=== PATIENT | male | born 1975 | race African-American/Black ===

== ENCOUNTER → 2021-11-27 | Outpatient (CLI) | payer BC ==
--- NOTE | 2021-11-28 09:49 | KCIC ---
MR LUMBAR SPINE WO [id number] Date: 11/27/2021 3:30 PM Indication: LUMBAGO. Chronic LBP. BLE pain and numbness. NKI. Comparison: CT abdomen and pelvis 11/10/2021. Technique: Multi-planar multi-weighted magnetic resonance imaging of the lumbar spine was performed w ithout intravenous contrast using the standard lumbar spine protocol. FINDINGS: The lumbar spine is normally aligned. No acute fracture. Moderate multilevel degenerative disc desicc ation and disc height loss. Nonspecific T1 hypointense marrow signal. Degenerative endplate edema at T11-12, L2-3, and L4-5. The conus terminates at a normal level. No abnormal signal is seen within the visualized distal spina l cord. No clumping of intrathecal nerve roots. No soft tissue abnormality in the visualized abdomen or pelvis. T12-L1: No disc bulge. No facet arthropathy. No significant spinal stenosis or neural foraminal narro wing. L1-L2: No disc bulge. No facet arthropathy. No significant spinal stenosis or neural foraminal narrow ing. L2-L3: Disc bulge. Mild facet arthropathy. Mild spinal stenosis and lateral recess narrowing. Moderat e bilateral neural foraminal narrowing. L3-L4: Disc bulge. Mild facet arthropathy. Mild spinal stenosis. Mild bilateral neural foraminal narr owing. L4-L5: Disc bulge with annular tear and central/right paracentral inferiorly migrating extrusion whic h extends 14 mm below the disc space. Moderate narrowing of the right lateral recess with displacemen t of the descending right L5 nerve root. Mild spinal stenosis. Moderate bilateral neural foraminal na rrowing. Mild facet arthropathy. L5-S1: Disc bulge. Mild facet arthropathy. No significant spinal stenosis. Mild bilateral neural fora walker narrowing. IMPRESSION: 1. Lumbar spondylosis, worst at L4-5 where a disc extrusion narrows the right lateral recess and disp laces the descending right L5 nerve root 2. Nonspecific T1 hypointense marrow signal, which can be seen with smoking, anemia, obesity, or pote ntially a marrow replacing process. Clinical correlation is advised. Electronically signed by: Maxx Damon MD (11/28/2021 9:47 AM) [id number]
== END ==
LOC: KCIC MRI 16:04
PROVIDERS: ATTEND Family Medicine
DX: M47.816 Spondylosis without myelopathy or radiculopathy, lumbar region (principal); M51.27 Other intervertebral disc displacement, lumbosacral region; M48.8X7 Other specified spondylopathies, lumbosacral region; M48.07 Spinal stenosis, lumbosacral region; R60.0 Localized edema
CPT/HCPCS: 72148